=== PATIENT | male | born 1975 | race African-American/Black ===

== ENCOUNTER 2022-08-27 11:06 | Observation (INO) ==
[2022-08-27 15:22] VITALS: BMI 35.7
[2022-08-27 15:43] LABS: BASOPHILS % (AUTO) 0.3 % (0.2-1.0); EOSINOPHILS # (AUTO) 0.3 x10^3/uL (0.0-0.2); EOSINOPHILS % (AUTO) 4.5 % (0.9-2.9); HEMATOCRIT 42.3 % (42.0-54.0); HEMOGLOBIN 14.7 g/dL (13.5-18.0); LYMPHOCYTES % (AUTO) 28.1 % (21.0-51.0); MEAN CORPUSCULAR HEMOGLOBIN 28.3 pg (27.0-34.0); MEAN CORPUSCULAR HGB CONC 34.7 g/dL (33.0-35.0); MEAN CORPUSCULAR VOLUME 81.5 fL (80.0-100.0); MONOCYTES # (AUTO) 0.5 x10^3/uL (0.3-0.8); MONOCYTES % (AUTO) 7.3 % (0.0-13.0); NEUTROPHILS # (AUTO) 4.3 x10^3/uL (2.2-4.8); NEUTROPHILS % (AUTO) 59.8 % (42.0-75.0); RED BLOOD COUNT 5.19 X10^6/uL (4.7-6.0); RED CELL DISTRIBUTION WIDTH 13.5 % (11.6-16.5); WHITE BLOOD COUNT 7.1 X10^3/uL (3.6-10.0)
[2022-08-27 15:56] LABS: ALANINE AMINOTRANSFERASE 42 Units/L (12-78); ALBUMIN 3.8 g/dL (3.4-5.0); ALKALINE PHOSPHATASE 77 Units/L (46-116); AMYLASE 60 Units/L (25-115); ASPARTATE AMINO TRANSFERASE 26 Units/L (15-37); BLOOD UREA NITROGEN 11 mg/dL (7-18); CALCIUM 8.9 mg/dL (8.5-10.1); CARBON DIOXIDE 30.9 mmol/L (21-32); CHLORIDE 102 mmol/L (98-107); CREATININE 0.95 mg/dL (0.70-1.30); LIPASE 108 Units/L (73-393); SODIUM 138 mmol/L (136-145); TOTAL PROTEIN 7.6 g/dL (6.4-8.2); eGFR NON BLACK RACES > 60 (>60)
[2022-08-27] MEDS ORDERED: NS 1,000 ML IV 1,000 ML ONE (16:20)
[2022-08-27] MEDS: NS 1,000 ML IV 1,000 ML IV SCH (16:23)
[2022-08-27 16:29] LABS: BILIRUBIN,URINE NEGATIVE (NEGATIVE); BLOOD/HEMOGLOBIN,URINE NEGATIVE (NEGATIVE); GLUCOSE, URINE NEGATIVE (NEGATIVE); KETONES,URINE NEGATIVE (NEGATIVE); LEUKOCYTE ESTERASE ,URINE NEGATIVE (NEGATIVE); NITRITES,URINE NEGATIVE (NEGATIVE); PROTEIN,URINE NEGATIVE (NEGATIVE); UROBILINOGEN,URINE 1+ (NORMAL)
[2022-08-27 16:39] LABS: APPEARANCE,URINE CLEAR (CLEAR); COLOR,URINE YELLOW (YELLOW)
[2022-08-27 16:40] LABS: BACTERIA,URINE TRACE /HPF (NEGATIVE); RBC,URINE 0-2 /HPF (0-3); SQUAMOUS EPITHELIAL CELL,UR RARE /HPF (NEGATIVE)
--- NOTE | 2022-08-27 20:42 | CT ---
HISTORYabd pain, nausea, dizzinessSTUDYABDOMEN/PELVIS WITH CONCOMPARISONNone availableTECHNIQUEMultiple axial images of the abdomen and pelvis were obtained from the lung bases to the pubic symphysis after the administration of 100 milliliter Omnipaque 350 IV contrast and oral contrast. Dose reduction techniques including Automated Exposure Control (AEC) and adjustment of mA and kV were utilized.FINDINGSLung bases show a 2 millimeter nodule on image 4 right lower lobe. No free air.Small fat containing umbilical hernia. Small fat containing right inguinal hernia. No bowel containing hernia.Prostate not enlarged. Bladder unremarkable. No pelvic free fluid.Bones show no lytic or destructive process. Left-side os acetabuli noted. Osseous bridging at the sacroiliac joints noted.The liver, spleen, adrenal glands, pancreas unremarkable. Gallbladder contains gallstones. Kidneys appear normal, no hydronephrosis. No ureteral calculi.Nonobstructive bowel. No bowel inflammatory features with decompressed transverse colon exaggerating wall appearance most likely, difficult to exclude mild colitis but most likely this is exaggerated. Normal appendix. Small bowel loops are unremarkable. Small nodular density just lateral to the distal descending colon measures 7 millimeter, this is nonspecific, could be a small lymph node.IMPRESSION- Nonobstructive bowel, no convincing bowel inflammatory features. Decompressed transverse colon segment likely exaggerates wall appearance, difficult to exclude mild colitis. Scattered colon diverticulosis. There is a nodular density measuring 7 millimeter just lateral to the distal descending colon which is nonspecific, could be a small lymph node. Lymph node at this site would be atypical, please ensure patient has had recent colonoscopy surveillance. No obvious bowel wall thickening in this region.- 2 millimeter right lower lobe pulmonary nodule. Optional CT thorax follow-up in 1 year only if the patient has significant risk factors. Additional details as above.Electronically signed by: Andrew Corea (Aug 27, 2022 20:41:23)
[2022-08-28] MEDS: NS 1,000 ML IV 1,000 ML IV SCH ×2 (04:00→17:11)
[2022-08-28 06:01] LABS: BASOPHILS % (AUTO) 0.1 % (0.2-1.0); EOSINOPHILS # (AUTO) 0.4 x10^3/uL (0.0-0.2); EOSINOPHILS % (AUTO) 4.7 % (0.9-2.9); HEMATOCRIT 40.2 % (42.0-54.0); HEMOGLOBIN 13.6 g/dL (13.5-18.0); LYMPHOCYTES # (AUTO) 2.5 X10^3/uL (1.3-2.9); LYMPHOCYTES % (AUTO) 30.7 % (21.0-51.0); MEAN CORPUSCULAR HEMOGLOBIN 27.6 pg (27.0-34.0); MEAN CORPUSCULAR HGB CONC 33.7 g/dL (33.0-35.0); MEAN CORPUSCULAR VOLUME 81.8 fL (80.0-100.0); MEAN PLATELET VOLUME 8.2 fL (7.4-11.0); MONOCYTES # (AUTO) 0.6 x10^3/uL (0.3-0.8); MONOCYTES % (AUTO) 7.5 % (0.0-13.0); NEUTROPHILS # (AUTO) 4.7 x10^3/uL (2.2-4.8); RED BLOOD COUNT 4.92 X10^6/uL (4.7-6.0); RED CELL DISTRIBUTION WIDTH 13.6 % (11.6-16.5); WHITE BLOOD COUNT 8.2 X10^3/uL (3.6-10.0)
[2022-08-28 06:21] LABS: ALANINE AMINOTRANSFERASE 37 Units/L (12-78); ALBUMIN 3.1 g/dL (3.4-5.0); ALKALINE PHOSPHATASE 73 Units/L (46-116); ASPARTATE AMINO TRANSFERASE 17 Units/L (15-37); BLOOD UREA NITROGEN 8 mg/dL (7-18); CARBON DIOXIDE 26.3 mmol/L (21-32); CHLORIDE 104 mmol/L (98-107); COR CA(FOR HYPOALB) 8.7 mg/dL (8.5-10.1); COR NA(FOR HYPERGLY) 139 mmol/L (136-145); CREATININE 0.94 mg/dL (0.70-1.30); SODIUM 138 mmol/L (136-145); TOTAL PROTEIN 6.5 g/dL (6.4-8.2); eGFR NON BLACK RACES > 60 (>60)
--- NOTE | 2022-08-28 12:31 | DR.UPDATE ---
H&P Update H&P Reviewed: Yes Any changes to H&P?: Yes Changes noted:: IS A 47 YEAR OLD PATIENT OF OURS. HE HAS A PMH OF OBESITY, HTN, AND BPV. HE PRESENTED TO THE OFFICE ON 08/27/22 WITH COMPLAINTS OF RUQ ABDOMINAL PAIN AND NAUSEA. HE REPORTS THAT SYMPTOMS HAVE BEEN PRESENT ON AND OFF FOR THE PAST FEW WEEKS. HE DESCRIBES PAIN SHARP/CRAMPING AND INTERMITTENT. PAIN USUALLY RADIATES ACROSS THE UPPER AND RIGHT SIDE OF ABDOMEN. HE RATED PAIN A 6/10 WHILE IN THE OFFICE. HE REPORTS NORMAL BOWEL HABITS. HE DENIES FEVER, CHILLS, HEARTBURN, DYSURIA, WEIGHT LOSS, MELENA. PAIN IS USUALLY WORSE AFTER EATING. DECISION WAS MADE TO ADMIT PATIENT TO THE HOSPITAL OBSERVATION STATUS FOR FURTHER EVALUATION AND TREATMENT. ON ARRIVAL TO THE HOSPITAL, HIS VITALS WERE: 99.2-78-20-99%-131/86. LABS WERE OBTAINED. WBC 7.1, RBC 5.19, HGB 14.7, HCT 42.3, PLT COUNT 317, SODIUM 138, POTASSIUM 3.8, CHLORIDE 102, BUN 11, CREATININE 0.95, GLUCOSE 87, CALCIUM 8.9, AST 26, ALT 42, ALK PHOS 77, TOTAL PROTEIN 7.6, ALBUMIN 3.8, AMYLASE 60, LIPASE 108. URINALYSIS WAS OBTAINED AND IS UNREMARKABLE. URINE CULTURE WAS SET UP. AN ABDOMEN/PELVIS CT WITH CONTRAST WAS OBTAINED AND REVEALED: Nonobstructive bowel, no convincing bowel inflammatory features. Decompressed transverse colon segment likely exaggerates wall appearance, difficult to exclude mild colitis. Scattered colon diverticulosis. There is a nodular density measuring 7 millimeter just lateral to the distal descending colon which is nonspecific, could be a small lymph node. Lymph node at this site would be atypical, please ensure patient has had recent colonoscopy surveillance. No obvious bowel wall thickening in this region. 2 millimeter right lower lobe pulmonary nodule. Optional CT thorax follow-up in 1 year only if the patient has significant risk factors. HE WAS STARTED ON NORMAL SALINE AT 80 ML/HR, PEPCID 20MG IV Q12H, PROTONIX 40MG IV BID, ZOSYN 3.375G IV TID. WE WILL RESUME HIS LISINOPRIL AND MECLIZINE. WE WILL CONSULT , GENERAL SURGEON. OTHERWISE, WE WILL FOLLOW-UP WITH AM LABS AND CONTINUE TO MONITOR. TIME SPENT ON CLINICAL ASSESSMENT, REVIWING LABS AND IMAGING, DECISION MAKING, AND DOCUMENTATION GREATER THAN 75 MINUTES. Patient was examined?: Yes
[2022-08-28] MEDS ORDERED: ANTIVERT TAB 25 MG PO PRN (13:37)
[2022-08-28] MEDS: PROTONIX INJ 40 MG VIAL IVP SCH ×2 (15:30→20:30)
[2022-08-28] MEDS: ZOSYN VIAL 3.375 GRAMS 3.375 G in NS 100 ML IV 100 ML IV SCH ×3 (15:30→21:49)
--- NOTE | 2022-08-28 15:54 | EKG ---
Test Reason : CHEST PAIN Blood Pressure : */* mmHG Vent. Rate : 64 BPM Atrial Rate : 64 BPM P-R Int : 168 ms QRS Dur : 84 ms QT Int : 386 ms P-R-T Axes : 34 49 38 degrees QTc Int : 398 ms Poor data quality, interpretation may be adversely affected Normal sinus rhythm Nonspecific T wave abnormality Abnormal ECG No previous ECGs available Confirmed by Rk Davis ([id number]) on 08/31/2022 1:42:55 PM Referred By: Confirmed By: Rk Davis
[2022-08-28] MEDS: PEPCID 20 MG VIAL 20 MG in NS 50 ML IV 50 ML IV SCH ×2 (16:01→20:30)
[2022-08-28] MEDS: ZESTRIL TAB 10 MG PO SCH (16:27)
--- NOTE | 2022-08-28 18:48 | US ---
GALL BLADDERHISTORY: Reason For StudyComparison: NoneTechnique: Multiple wang scale and color flow Doppler images of the abdomen were obtained.Findings:Overall study is limited by overlying bowel gas. The liver is normal in echotexture and size. No focal mass. No intrahepatic bile duct dilatation. Gallstones present.No pericholecystic fluid or gallbladder wall thickening. The technologist did not report a positive sonographic Knowles's sign. The common bile duct measures 3 mm.The right kidney measures 10.7 cm. No focal mass, hydronephrosis, or stones identified.IMPRESSION:1.Cholelithiasis without evidence of cholecystitis.2. Hepatic steatosis.Electronically signed by: SREEDHAR KERR (Aug 28, 2022 18:47:03)
[2022-08-29] MEDS: ZOSYN VIAL 3.375 GRAMS 3.375 G in NS 100 ML IV 100 ML IV SCH (05:24)
[2022-08-29 06:11] LABS: BASOPHILS # (AUTO) 0.1 X10^3/uL (0.0-0.1); BASOPHILS % (AUTO) 1.3 % (0.2-1.0); EOSINOPHILS # (AUTO) 0.3 x10^3/uL (0.0-0.2); EOSINOPHILS % (AUTO) 3.2 % (0.9-2.9); HEMOGLOBIN 13.7 g/dL (13.5-18.0); LYMPHOCYTES # (AUTO) 2.4 X10^3/uL (1.3-2.9); LYMPHOCYTES % (AUTO) 29.9 % (21.0-51.0); MEAN CORPUSCULAR HEMOGLOBIN 27.8 pg (27.0-34.0); MEAN CORPUSCULAR HGB CONC 34.4 g/dL (33.0-35.0); MEAN PLATELET VOLUME 8.2 fL (7.4-11.0); MONOCYTES # (AUTO) 0.5 x10^3/uL (0.3-0.8); NEUTROPHILS # (AUTO) 4.7 x10^3/uL (2.2-4.8); NEUTROPHILS % (AUTO) 59.6 % (42.0-75.0); RED BLOOD COUNT 4.94 X10^6/uL (4.7-6.0); RED CELL DISTRIBUTION WIDTH 14.1 % (11.6-16.5); WHITE BLOOD COUNT 7.9 X10^3/uL (3.6-10.0)
[2022-08-29 06:12] LABS: ALANINE AMINOTRANSFERASE 30 Units/L (12-78); ALBUMIN 3.2 g/dL (3.4-5.0); ALKALINE PHOSPHATASE 71 Units/L (46-116); ASPARTATE AMINO TRANSFERASE 12 Units/L (15-37); BLOOD UREA NITROGEN 7 mg/dL (7-18); CALCIUM 8.3 mg/dL (8.5-10.1); CHLORIDE 105 mmol/L (98-107); COR CA(FOR HYPOALB) 8.9 mg/dL (8.5-10.1); COR NA(FOR HYPERGLY) 142 mmol/L (136-145); CREATININE 0.98 mg/dL (0.70-1.30); SODIUM 141 mmol/L (136-145); TOTAL PROTEIN 6.5 g/dL (6.4-8.2); eGFR NON BLACK RACES > 60 (>60)
[2022-08-29] MEDS ORDERED: KLOR-CON PO PRN (06:33)
[2022-08-29] MEDS ORDERED: POTASSIUM CHL 40 MEQ/NS 0.45% 500 ML IV PRN (06:33)
[2022-08-29] MEDS ORDERED: POTASSIUM CHL 60 MEQ/NS 0.45% 500 ML IV PRN (06:33)
[2022-08-29] MEDS ORDERED: POTASSIUM CHLORIDE LIQ 20 MEQ UDC PO PRN (06:33)
[2022-08-29] MEDS ORDERED: MICRO K EXTEN CAP 10 MEQ PO PRN (06:33)
[2022-08-29] MEDS ORDERED: MAGNESIUM SULFATE 1 GRAM/100 mL PREMIX 1 G/100 ML BAG IV PRN (06:33)
[2022-08-29] MEDS ORDERED: K-RIDER 10 MEQ/NS 100 ML 10 MEQ/100 ML BAG IV PRN (06:33)
[2022-08-29] MEDS ORDERED: K-DUR TAB 20 MEQ PO PRN (06:33)
[2022-08-29 08:36] VITALS: BP 142/76
[2022-08-29] MEDS: NS 1,000 ML IV 1,000 ML IV SCH (08:36)
[2022-08-29] MEDS: ZESTRIL TAB 10 MG PO SCH (09:11)
[2022-08-29] MEDS: PEPCID 20 MG VIAL 20 MG in NS 50 ML IV 50 ML IV SCH (09:11)
[2022-08-29] MEDS: PROTONIX INJ 40 MG VIAL IVP SCH (09:11)
== END 2022-08-29 12:56 | disposition home or self-care (01) ==
LOC: MED/SURG
PROVIDERS: ADMIT Internal Medicine; ATTEND Internal Medicine
DX: R10.84 Generalized abdominal pain; R11.0 Nausea; K80.80 Other cholelithiasis without obstruction; Z79.899 Other long term (current) drug therapy; I10 Essential (primary) hypertension; K76.0 Fatty (change of) liver, not elsewhere classified; R94.31 Abnormal electrocardiogram [ECG] [EKG]; R42 Dizziness and giddiness